=== PATIENT | female | born 1960 | race Caucasian/White ===

== ENCOUNTER → 2017-09-19 | Outpatient (CLI) | payer OTHER | LOC: M WHC 15:18 | DX: Z12.31 Encounter for screening mammogram for malignant neoplasm of breast (principal); Z78.0 Asymptomatic menopausal state; Z92.0 Personal history of contraception; Z92.89 Personal history of other medical treatment | CPT/HCPCS: 77067 ==

== ENCOUNTER 2018-04-09 10:53 | Day surgery (SDC) | payer OTHER ==
[2018-04-09] MEDS: NS 1,000 ML IV (11:00)
[2018-04-09] MEDS ORDERED: PROPOFOL 200 MG/20 ML VIAL As Ordered (11:52)
== END 2018-04-09 12:39 | disposition home or self-care (01) ==
LOC: M OPP 10:53
DX: Z12.11 Encounter for screening for malignant neoplasm of colon (principal); K64.0 First degree hemorrhoids; K57.30 Diverticulosis of large intestine without perforation or abscess without bleeding; Z80.0 Family history of malignant neoplasm of digestive organs; Z79.82 Long term (current) use of aspirin; Z79.899 Other long term (current) drug therapy; Z88.0 Allergy status to penicillin; K21.9 Gastro-esophageal reflux disease without esophagitis; F41.9 Anxiety disorder, unspecified; I10 Essential (primary) hypertension; Z91.89 Other specified personal risk factors, not elsewhere classified
CPT/HCPCS: 45378

== ENCOUNTER 2019-01-06 09:15 | Emergency (ER) | payer OTHER ==
[~2019-01-06] VITALS: Ht 157.5 cm; Wt 68.9 kg
[~2019-01-06 09:15] MED LIST: ASPI81TA85 PO; EFFE37.5 PO; METO25TA4 PO; MULT1TAB18 PO; VITA200016 PO
[2019-01-06] MEDS ORDERED: NS 1,000 ML IV ONE (09:45)
[2019-01-06 10:13] LABS: BASO % 0.6 % (0.0-1.0); EOS # 0.1 10^3/uL (0.0-0.50); HEMATOCRIT 45.6 % (36.0-47.0); HEMOGLOBIN 14.9 g/dl (12.0-15.5); LYMPH # 1.5 10^3/uL (1.5-4.5); LYMPH % 23.3 % (24.0-44.0); MEAN CORPUSCULAR HEMOGLOBIN 28.7 pg (27.0-33.0); MEAN CORPUSCULAR HGB CONC 32.7 g/dl (32.0-36.5); MEAN CORPUSCULAR VOLUME 87.7 fl (80.0-96.0); MONO # 0.8 10^3/uL (0.0-0.8); NEUTROPHILS % 61.6 % (36.0-66.0); PLATELET COUNT, AUTOMATED 236 10^3/uL (150-450); WHITE BLOOD COUNT 6.5 10^3/uL (4.0-10.0)
[2019-01-06 10:45] LABS: ALBUMIN 3.6 GM/DL (3.2-5.2); ALT/SGPT 25 U/L (12-78); AMYLASE 23 U/L (25-115); BILIRUBIN,DIRECT 0.2 MG/DL (0.0-0.2); BILIRUBIN,TOTAL 0.5 MG/DL (0.2-1.0); BLOOD UREA NITROGEN 20 MG/DL (7-18); CALCIUM LEVEL 8.7 MG/DL (8.5-10.1); CARBON DIOXIDE LEVEL 27 MEQ/L (21-32); CHLORIDE LEVEL 107 MEQ/L (98-107); CK-MB VALUE MASS < 1.0 NG/ML (<3.6); CPK CREATINE PHOSPHOKINASE 35 U/L (26-192); CREATININE FOR GFR 0.91 MG/DL (0.55-1.30); GLOMERULAR FILTRATION RATE > 60.0 (>51); GLUCOSE, FASTING 97 MG/DL (70-100); LIPASE 71 U/L (73-393); MB/CK RELATIVE INDEX 2.85 (< OR =4); POTASSIUM SERUM 4.1 MEQ/L (3.5-5.1); SODIUM LEVEL 141 MEQ/L (136-145); TOTAL PROTEIN 6.8 GM/DL (6.4-8.2); TROPONIN I < 0.02 NG/ML (< 0.10)
[2019-01-06 12:37] VITALS: BP 139/86
== END 2019-01-06 12:54 | disposition home or self-care (01) ==
LOC: M ED 09:15
DX: A08.4 Viral intestinal infection, unspecified (principal); I10 Essential (primary) hypertension; Z87.442 Personal history of urinary calculi; Z79.82 Long term (current) use of aspirin; Z79.899 Other long term (current) drug therapy; Z88.0 Allergy status to penicillin

== ENCOUNTER → 2019-09-30 | Outpatient (REF) | payer OTHER ==
[2019-09-30 18:39] LABS: APPEARANCE, URINE CLEAR (CLEAR); BACTERIA, URINE AUTO NEGATIVE (NEGATIVE); BILIRUBIN, URINE AUTO NEGATIVE (NEGATIVE); BLOOD, URINE BLOOD 2+ (NEGATIVE); COLOR, URINE YELLOW (YELLOW); GLUCOSE, URINE (UA) AUTO NEGATIVE (NEGATIVE); KETONE, URINE AUTO NEGATIVE (NEGATIVE); LEUKOCYTE ESTERASE, URINE AUTO NEGATIVE (NEGATIVE); MUCUS, URINE SMALL (NEGATIVE); NITRITE, URINE AUTO NEGATIVE (NEGATIVE); PROTEIN, URINE AUTO 1+ mg/dL (NEGATIVE); RBC, URINE AUTO 22 /HPF (0-3); SPECIFIC GRAVITY URINE AUTO 1.019 (1.002-1.035); SQUAMOUS EPITHELIAL CELL UR AU 0 /HPF (0-6); UROBILINOGEN, URINE AUTO 0.2 mg/dL (0.0-2.0); WBC, URINE AUTO 5 /HPF (0-3)
== END ==
LOC: M LAB REF 17:07
PROVIDERS: ATTEND Nurse Practitioner Women's Health
DX: N32.81 Overactive bladder (principal); N39.41 Urge incontinence

== ENCOUNTER → 2020-08-24 | Outpatient (CLI) | payer SELFPAY ==
[~2020-08-24] MED LIST changes: -ASPI81TA85 PO; +ASPI81TA86 PO
== END ==
LOC: M LABSMTC 14:37
PROVIDERS: ATTEND Pediatrics
DX: Z20.828 Contact with and (suspected) exposure to other viral communicable diseases (principal)

== ENCOUNTER → 2021-06-28 | Outpatient (CLI) | payer OTHER ==
--- NOTE | 2021-06-28 09:47 | REP ---
INDICATION: PAIN COMPARISON: None. TECHNIQUE: AP and frog-lateral views of the left hip FINDINGS: Two views of the left hip demonstrates essentially age-appropriate examination. No significant overt arthritic degenerative changes are appreciated. No evidence for acute or healed injury. Surrounding soft tissues are unremarkable. IMPRESSION: Essentially age-appropriate left hip radiographs. <Electronically signed by Lei Jama > 06/28/21 0943
== END ==
LOC: M WUC 08:44
PROVIDERS: ATTEND Family Medicine
DX: M25.552 Pain in left hip (principal)

== ENCOUNTER → 2021-07-28 | Outpatient (CLI) | payer OTHER | LOC: M LABSMTC 11:25 | PROVIDERS: ATTEND Family Medicine | DX: Z20.822 Contact with and (suspected) exposure to COVID-19 (principal) ==

== ENCOUNTER → 2021-09-24 | Outpatient (CLI) | payer SELFPAY | LOC: M LABSMTC 09:29 | PROVIDERS: ATTEND Pediatrics | DX: Z20.822 Contact with and (suspected) exposure to COVID-19 (principal) ==

== ENCOUNTER 2022-01-29 16:43 | Emergency (ER) | payer OTHER ==
[~2022-01-29] VITALS: Ht 157.5 cm; Wt 67.7 kg
[2022-01-29] MEDS ORDERED: ONDANSETRON 4MG/2ML VIAL IV ONE (16:50)
[2022-01-29] MEDS ORDERED: MORPHINE 4 MG/ML 1ML VIAL/SYRINGE IV PRN (16:50)
[2022-01-29] MEDS ORDERED: METO1TAB7 (17:33)
[2022-01-29] MEDS ORDERED: BUPIVACAINE HCL 0.25% 10ML VIAL SC ONE (22:00)
[2022-01-29] MEDS ORDERED: LIDOCAINE 1% MDV 20ML VIAL SC ONE (22:00)
[2022-01-29 23:15] VITALS: BP 190/84
[2022-01-29] MEDS ORDERED: traMADol 50 MG TAB (BULK 4 TAB ED) PO ONE (23:35)
== END 2022-01-29 23:45 | disposition home or self-care (01) ==
LOC: M ED 16:43 → EDBD 16:43 → M ED 23:45
DX: S52.502A Unspecified fracture of the lower end of left radius, initial encounter for closed fracture (principal); W10.9XXA Fall (on) (from) unspecified stairs and steps, initial encounter; Y92.099 Unspecified place in other non-institutional residence as the place of occurrence of the external cause; Y93.9 Activity, unspecified; Y99.9 Unspecified external cause status; I10 Essential (primary) hypertension; F41.9 Anxiety disorder, unspecified; Z79.82 Long term (current) use of aspirin; Z79.899 Other long term (current) drug therapy; Z88.0 Allergy status to penicillin
CPT/HCPCS: 25605; 73080; 73090; 73100; 73110; 96374; 96375; 99285; J2270; J2405

== ENCOUNTER → 2022-02-10 | Outpatient (CLI) | payer OTHER ==
[~2022-02-10] MED LIST changes: +METO1TAB7
== END ==
LOC: M SOG 09:29
PROVIDERS: ATTEND Student in an Organized Health Care Education/Training Program
DX: S52.502D Unspecified fracture of the lower end of left radius, subsequent encounter for closed fracture with routine healing (principal); X58.XXXD Exposure to other specified factors, subsequent encounter; Y92.9 Unspecified place or not applicable; Y93.9 Activity, unspecified; Y99.9 Unspecified external cause status

== ENCOUNTER → 2022-02-17 | Outpatient (CLI) | payer OTHER | LOC: M SOG 09:02 | PROVIDERS: ATTEND Orthopaedic Surgery | DX: S52.502D Unspecified fracture of the lower end of left radius, subsequent encounter for closed fracture with routine healing (principal) ==

== ENCOUNTER → 2022-03-24 | Outpatient (CLI) | payer OTHER | LOC: M SOG 09:04 | PROVIDERS: ATTEND Orthopaedic Surgery | DX: S52.502D Unspecified fracture of the lower end of left radius, subsequent encounter for closed fracture with routine healing (principal) ==

== ENCOUNTER 2022-04-13 09:13 | Outpatient (RCR) | payer OTHER | END 2022-04-17 | LOC: M OT 09:13 | PROVIDERS: ATTEND Orthopaedic Surgery | DX: S52.502D Unspecified fracture of the lower end of left radius, subsequent encounter for closed fracture with routine healing (principal) ==

== ENCOUNTER 2022-05-17 09:00 | Outpatient (RCR) | payer OTHER | END 2022-05-18 | LOC: M OT 09:00 | PROVIDERS: ATTEND Orthopaedic Surgery | DX: S52.502D Unspecified fracture of the lower end of left radius, subsequent encounter for closed fracture with routine healing (principal) ==

== ENCOUNTER 2022-05-26 09:41 | Outpatient (RCR) | payer OTHER | END 2022-06-17 | LOC: M OT 09:41 | PROVIDERS: ATTEND Orthopaedic Surgery | DX: S52.502D Unspecified fracture of the lower end of left radius, subsequent encounter for closed fracture with routine healing (principal) ==

== ENCOUNTER → 2022-12-16 | Outpatient (CLI) | payer OTHER ==
[2022-12-16 16:59] LABS: CALCIUM LEVEL 9.2 MG/DL (8.3-10.6); CREATININE FOR GFR 1.19 MG/DL (0.55-1.30); GLOMERULAR FILTRATION RATE 49.1 (>45)
== END ==
LOC: M LAB 15:54
PROVIDERS: ATTEND Family Medicine
DX: R51.9 Headache, unspecified (principal)

== ENCOUNTER → 2022-12-21 | Outpatient (CLI) | payer OTHER ==
[~2022-12-21] MED LIST changes: +PROHANCE 279.3MG/ML 5ML VIAL As Ordered ONE
== END ==
LOC: M RAD 08:54
PROVIDERS: ATTEND Family Medicine
DX: R51.9 Headache, unspecified (principal); R90.89 Other abnormal findings on diagnostic imaging of central nervous system
CPT/HCPCS: 70553; A9576

== ENCOUNTER 2023-01-23 10:19 | Observation (INO) | payer OTHER ==
[~2023-01-23] VITALS: Ht 157.5 cm; Wt 69.1 kg
[~2023-01-23 10:19] MED LIST changes: -METO1TAB7; +METO1TAB7 PO; -PROHANCE 279.3MG/ML 5ML VIAL As Ordered ONE
[2023-01-23 12:11] LABS: BASO # 0.1 10^3/uL (0.0-0.2); BASO % 0.8 % (0.0-1.0); EOS # 0.1 10^3/uL (0.0-0.5); EOS % 0.9 % (0.0-3.0); HEMATOCRIT 44.9 % (36.0-47.0); HEMOGLOBIN 14.4 g/dl (12.0-15.5); LYMPH # 1.3 10^3/uL (1.5-5.0); LYMPH % 17.4 % (24.0-44.0); MEAN CORPUSCULAR HEMOGLOBIN 28.5 pg (27.0-33.0); MEAN CORPUSCULAR HGB CONC 32.1 g/dl (32.0-36.5); MEAN CORPUSCULAR VOLUME 88.7 fl (80.0-96.0); MONO # 0.4 10^3/uL (0.0-0.8); MONO % 5.4 % (2.0-8.0); NEUTROPHILS # 5.7 10^3/uL (1.5-8.5); NEUTROPHILS % 75.1 % (36.0-66.0); PLATELET COUNT, AUTOMATED 272 10^3/uL (150-450); RED BLOOD COUNT 5.06 10^6/uL (4.00-5.40); WHITE BLOOD COUNT 7.6 10^3/uL (4.0-10.0)
[2023-01-23 12:33] LABS: CALCIUM LEVEL 9.6 MG/DL (8.3-10.6); CREATININE FOR GFR 1.04 MG/DL (0.55-1.30); GLOMERULAR FILTRATION RATE 57.4 (>45); POTASSIUM SERUM 4.6 MMOL/L (3.5-5.1)
[2023-01-23] MEDS ORDERED: LIDOCAINE 5% (LIDODERM) PATCH TD ONE (14:45)
[2023-01-23] MEDS ORDERED: KETOROLAC 30 MG/ML 1ML VIAL IV ONE (14:45)
[2023-01-23] MEDS ORDERED: NS 1,000 ML IV ONE (14:45)
[2023-01-23] MEDS ORDERED: MORPHINE 4 MG/ML 1ML VIAL IV ONE (16:25)
[2023-01-23] MEDS ORDERED: ONDANSETRON 4MG 2ML VIAL IV ONE (16:25)
[2023-01-23] MEDS ORDERED: NS 1,000 ML IV SCH (16:30)
[2023-01-23] MEDS ORDERED: ACETAMINOPHEN TAB 650MG DOSE (2X325MG) PO PRN (17:00)
[2023-01-23] MEDS ORDERED: MORPHINE 2 MG/ML 1ML VIAL IV PRN ×2 (17:00)
[2023-01-23] MEDS ORDERED: SALI0.6530 NARES (17:08)
[2023-01-23] MEDS ORDERED: D3 S1CAP3 PO (17:08)
[2023-01-23] MEDS ORDERED: B-12100010 PO (17:08)
[2023-01-23] MEDS ORDERED: VITMTA PO (17:08)
[2023-01-23] MEDS ORDERED: IBUP200C25 PO (17:08)
[2023-01-23] MEDS ORDERED: ECOT81TA5 PO (17:08)
[2023-01-23] MEDS ORDERED: HOME MED LIST COMPLETE! XX SCH (17:15)
[2023-01-23 17:26] LABS: RSV AMPLIFICATION NEGATIVE (NEGATIVE)
[2023-01-23] MEDS: NS 1,000 ML IV SCH ×2 (17:43→20:37)
[2023-01-23] MEDS: cefTRIAXone SOD 1 GM in D5W MINI-BAG PLUS 50 ML IV SCH (17:43)
[2023-01-23 20:02] VITALS: BP 142/84
[2023-01-23] MEDS: SODIUM CHLORIDE NASAL 0.65% SPRAY BTL (OCEAN) SCH (21:00)
[2023-01-24] VITALS (13 sets, daily range): BP systolic 124–160; BP diastolic 62–90
[2023-01-24 07:17] LABS: HEMATOCRIT 38.3 % (36.0-47.0); MEAN CORPUSCULAR HEMOGLOBIN 28.5 pg (27.0-33.0); MEAN CORPUSCULAR HGB CONC 31.6 g/dl (32.0-36.5); MEAN CORPUSCULAR VOLUME 90.1 fl (80.0-96.0); PLATELET COUNT, AUTOMATED 216 10^3/uL (150-450); RED BLOOD COUNT 4.25 10^6/uL (4.00-5.40); WHITE BLOOD COUNT 6.6 10^3/uL (4.0-10.0)
[2023-01-24 07:28] LABS: HEMOGLOBIN 12.1 g/dl (12.0-15.5)
[2023-01-24 07:40] LABS: ALBUMIN 3.2 G/DL (3.2-5.2); BILIRUBIN,TOTAL 0.5 MG/DL (0.3-1.2); CALCIUM LEVEL 8.2 MG/DL (8.3-10.6); POTASSIUM SERUM 4.5 MMOL/L (3.5-5.1); TOTAL PROTEIN 6.3 G/DL (5.7-8.2)
[2023-01-24] MEDS: METOPROLOL SUCC (TopROL XL) 50MG **XL** TAB PO SCH (08:29)
[2023-01-24] MEDS: SODIUM CHLORIDE NASAL 0.65% SPRAY BTL (OCEAN) SCH ×2 (08:30→20:24)
[2023-01-24] MEDS: VENLAFAXINE **XR** 37.5 MG CAPSULE PO SCH (08:31)
[2023-01-24] MEDS: NS 1,000 ML IV SCH (09:00)
[2023-01-24] MEDS ORDERED: propofoL 200 MG/20 ML VIAL As Ordered ONE (16:47)
[2023-01-24] MEDS ORDERED: fentaNYL 100 MCG/2 ML INJECTION As Ordered ONE (16:47)
[2023-01-24] MEDS ORDERED: MIDAZOLAM INJ 2MG/2ML VIAL As Ordered ONE (16:47)
[2023-01-24] MEDS ORDERED: LIDOCAINE 2% 100MG/5ML SDV (FOR ANES.) As Ordered ONE (16:47)
[2023-01-24] MEDS: cefTRIAXone SOD 1 GM in D5W MINI-BAG PLUS 50 ML IV SCH (18:47)
[2023-01-24] MEDS ORDERED: ONDANSETRON 4MG 2ML VIAL IV PRN (19:45)
[2023-01-24] MEDS ORDERED: oxyBUTYnin 5 MG TAB PO PRN (19:50)
[2023-01-24] MEDS: PHENAZOPYRIDINE 100 MG TAB PO PRN (20:24)
[2023-01-25 03:45] VITALS: BP 134/64
[2023-01-25] MEDS: NS 1,000 ML IV SCH (06:30)
[2023-01-25 07:45] LABS: MEAN CORPUSCULAR HEMOGLOBIN 27.8 pg (27.0-33.0); MEAN CORPUSCULAR HGB CONC 31.7 g/dl (32.0-36.5); MEAN CORPUSCULAR VOLUME 87.8 fl (80.0-96.0); PLATELET COUNT, AUTOMATED 236 10^3/uL (150-450); RED BLOOD COUNT 4.67 10^6/uL (4.00-5.40); WHITE BLOOD COUNT 7.4 10^3/uL (4.0-10.0)
[2023-01-25 08:00] VITALS: BP 124/68
[2023-01-25 08:39] LABS: BASO # 0.1 10^3/uL (0.0-0.2); BASO % 0.8 % (0.0-1.0); EOS # 0.2 10^3/uL (0.0-0.5); EOS % 3.3 % (0.0-3.0); LYMPH # 1.3 10^3/uL (1.5-5.0); LYMPH % 17.3 % (24.0-44.0); MONO # 0.6 10^3/uL (0.0-0.8); MONO % 8.7 % (2.0-8.0); NEUTROPHILS % 69.6 % (36.0-66.0)
[2023-01-25 08:55] LABS: ALBUMIN 3.7 G/DL (3.2-5.2); ALKALINE PHOSPHATASE 126 U/L (46-116); ALT/SGPT 15 U/L (7.0-40); AST/SGOT 16 U/L (<34); BILIRUBIN,TOTAL 0.6 MG/DL (0.3-1.2); BLOOD UREA NITROGEN 11 MG/DL (9-23); CALCIUM LEVEL 9.1 MG/DL (8.3-10.6); CARBON DIOXIDE LEVEL 28 MMOL/L (20-31); CHLORIDE LEVEL 105 MMOL/L (98-107); CREATININE FOR GFR 0.96 MG/DL (0.55-1.30); GLOMERULAR FILTRATION RATE > 60.0 (>45); GLUCOSE, FASTING 75 MG/DL (74-106); SODIUM LEVEL 139 MMOL/L (136-145)
[2023-01-25] MEDS: VENLAFAXINE **XR** 37.5 MG CAPSULE PO SCH (09:08)
[2023-01-25] MEDS: METOPROLOL SUCC (TopROL XL) 50MG **XL** TAB PO SCH (09:08)
[2023-01-25] MEDS: SODIUM CHLORIDE NASAL 0.65% SPRAY BTL (OCEAN) SCH (09:09)
[2023-01-25] MEDS: PHENAZOPYRIDINE 100 MG TAB PO PRN (09:12)
[2023-01-25] MEDS ORDERED: ACET1TAB55 PO (10:24)
[2023-01-25] MEDS ORDERED: ONDA-83 PO (10:24)
[2023-01-25 12:00] VITALS: BP 134/68
== END 2023-01-25 13:55 | disposition home or self-care (01) ==
LOC: M ED 10:19 → M ED INP 17:00 → M MS4PR 20:02
PROVIDERS: ADMIT Internal Medicine; ATTEND Family Medicine
DX: N13.2 Hydronephrosis with renal and ureteral calculous obstruction (principal); R51.9 Headache, unspecified; I10 Essential (primary) hypertension; E04.1 Nontoxic single thyroid nodule; N39.0 Urinary tract infection, site not specified; Z88.0 Allergy status to penicillin; Z79.82 Long term (current) use of aspirin; Z79.899 Other long term (current) drug therapy
CPT/HCPCS: 36415; 52332; 74176; 74420; 80048; 80053; 81001; 85025; 85027; 87086; 87631; 96361; 96365; 96366; 96375; 96376; 99284; C1769; C2617; J0696; J1885; J2250; J2405; J3010

== ENCOUNTER → 2023-02-03 | Outpatient (CLI) | payer OTHER ==
[~2023-02-03] MED LIST changes: +ACET1TAB55 PO; +B-12100010 PO; +D3 S1CAP3 PO; +ECOT81TA5 PO; +IBUP200C25 PO; +ONDA-83 PO; +SALI0.6530 NARES; +VITMTA PO
[2023-02-03 19:19] LABS: APPEARANCE, URINE CLOUDY (CLEAR); BACTERIA, URINE AUTO NEGATIVE (NEGATIVE); BILIRUBIN, URINE AUTO NEGATIVE (NEGATIVE); BLOOD, URINE BLOOD 3+ (NEGATIVE); CALCIUM OXALATE CRYSTALS SMALL; COLOR, URINE AMBER (YELLOW); GLUCOSE, URINE (UA) AUTO NEGATIVE (NEGATIVE); KETONE, URINE AUTO TRACE mg/dL (NEGATIVE); LEUKOCYTE ESTERASE, URINE AUTO 3+ (NEGATIVE); MUCUS, URINE SMALL (NEGATIVE); NITRITE, URINE AUTO NEGATIVE (NEGATIVE); PROTEIN, URINE AUTO 3+ mg/dL (NEGATIVE); RBC, URINE AUTO TNTC /HPF (0-3); SPECIFIC GRAVITY URINE AUTO 1.027 (1.002-1.035); SQUAMOUS EPITHELIAL CELL UR AU 1 /HPF (0-6); UROBILINOGEN, URINE AUTO 0.2 mg/dL (0.0-2.0); WBC, URINE AUTO 117 /HPF (0-3)
== END ==
LOC: M LAB 18:03
PROVIDERS: ATTEND Physician Assistant
DX: R30.0 Dysuria (principal)

== ENCOUNTER → 2023-02-21 | Outpatient (CLI) | payer OTHER ==
[2023-02-21 15:38] LABS: APPEARANCE, URINE HAZY (CLEAR); BACTERIA, URINE AUTO 1+ (NEGATIVE); BILIRUBIN, URINE AUTO NEGATIVE (NEGATIVE); BLOOD, URINE BLOOD 3+ (NEGATIVE); COLOR, URINE AMBER (YELLOW); GLUCOSE, URINE (UA) AUTO NEGATIVE (NEGATIVE); KETONE, URINE AUTO NEGATIVE (NEGATIVE); LEUKOCYTE ESTERASE, URINE AUTO 3+ (NEGATIVE); MUCUS, URINE SMALL (NEGATIVE); NITRITE, URINE AUTO NEGATIVE (NEGATIVE); PROTEIN, URINE AUTO 2+ mg/dL (NEGATIVE); RBC, URINE AUTO TNTC /HPF (0-3); SPECIFIC GRAVITY URINE AUTO 1.027 (1.002-1.035); SQUAMOUS EPITHELIAL CELL UR AU 1 /HPF (0-6); WBC, URINE AUTO 63 /HPF (0-3)
== END ==
LOC: M LAB 14:52
PROVIDERS: ATTEND Physician Assistant
DX: Z01.818 Encounter for other preprocedural examination (principal)

== ENCOUNTER 2023-03-02 09:45 | Day surgery (SDC) | payer OTHER ==
[~2023-03-02] VITALS: Ht 157.5 cm; Wt 67.0 kg
[~2023-03-02 09:45] MED LIST changes: +OXYB5TAB10 PO; +VENL37.598 PO; +[UNRECOGNIZED DRUG - OTHER] PO; +ceFAZolin SOD 2 GM in IV 1 EA IV ONE
[2023-03-02] MEDS ORDERED: LR 1,000 ML IV SCH (11:15)
[2023-03-02] MEDS ORDERED: ACETAMINOPHEN 1000MG 100ML IV BAG As Ordered ONE (12:53)
[2023-03-02] MEDS ORDERED: OXYB5TAB10 PO (13:04)
[2023-03-02] MEDS ORDERED: MACR100C43 PO (13:04)
[2023-03-02] MEDS ORDERED: PYRI1TAB5 PO (13:04)
[2023-03-02] MEDS ORDERED: LABETALOL 100MG/20ML VIAL As Ordered ONE (13:06)
[2023-03-02] MEDS ORDERED: propofoL 200 MG/20 ML VIAL As Ordered ONE (13:20)
[2023-03-02] MEDS ORDERED: LIDOCAINE 2% 100MG/5ML SDV (FOR ANES.) As Ordered ONE (13:20)
[2023-03-02] MEDS ORDERED: ONDANSETRON 4MG 2ML VIAL As Ordered ONE (13:20)
[2023-03-02] MEDS ORDERED: MIDAZOLAM INJ 2MG/2ML VIAL As Ordered ONE (13:20)
[2023-03-02] MEDS ORDERED: GLYCOPYRROLATE INJ 0.2 MG/ML 2 ML VIAL As Ordered ONE (13:20)
[2023-03-02] MEDS ORDERED: fentaNYL 100 MCG/2 ML INJECTION As Ordered ONE (13:20)
[2023-03-02 14:12] VITALS: BP 169/87; TEMP 97.7; O2SAT 99
== END 2023-03-02 14:18 | disposition home or self-care (01) ==
LOC: M SDC 09:45
PROVIDERS: ATTEND Urology
DX: N20.0 Calculus of kidney (principal); I10 Essential (primary) hypertension; F41.9 Anxiety disorder, unspecified; Z79.899 Other long term (current) drug therapy; Z88.0 Allergy status to penicillin; K21.9 Gastro-esophageal reflux disease without esophagitis; G43.909 Migraine, unspecified, not intractable, without status migrainosus
CPT/HCPCS: 50590; 74018; J0131; J0690; J2250; J2405; J3010

== ENCOUNTER → 2023-03-13 | Outpatient (CLI) | payer OTHER ==
[~2023-03-13] MED LIST changes: +MACR100C43 PO; +PYRI1TAB5 PO; -ceFAZolin SOD 2 GM in IV 1 EA IV ONE
== END ==
LOC: M RAD 13:30
PROVIDERS: ATTEND Urology
DX: N20.0 Calculus of kidney (principal); Z96.0 Presence of urogenital implants

== ENCOUNTER → 2023-03-17 | Outpatient (REF) | payer OTHER | LOC: M SMT 11:28 | PROVIDERS: ATTEND Urology | DX: Z96.0 Presence of urogenital implants (principal) ==

== ENCOUNTER → 2023-03-24 | Outpatient (CLI) | payer OTHER | LOC: M WHC 12:20 | PROVIDERS: ATTEND Nurse Practitioner Family | DX: E04.2 Nontoxic multinodular goiter (principal) ==

== ENCOUNTER → 2023-05-04 | Outpatient (REF) | payer OTHER | LOC: M LAB REF 17:28 | PROVIDERS: ATTEND Internal Medicine Endocrinology, Diabetes & Metabolism | DX: E04.2 Nontoxic multinodular goiter (principal) ==

== ENCOUNTER → 2023-08-18 | Outpatient (CLI) | payer OTHER ==
[~2023-08-18] MED LIST changes: -OXYB5TAB10 PO; +OXYB5TAB11 PO
== END ==
LOC: M RAD 16:21
PROVIDERS: ATTEND Urology
DX: Z96.0 Presence of urogenital implants (principal)

== ENCOUNTER → 2024-01-09 | Outpatient (CLI) | payer OTHER ==
[~2024-01-09] MED LIST changes: -EFFE37.5 PO; +EFFE37.52 PO; -OXYB5TAB11 PO; +OXYB5TAB14 PO; -SALI0.6530 NARES; +SODI88SP NARES; +THERTAB52 PO
== END ==
LOC: M RAD 08:07
PROVIDERS: ATTEND Physician Assistant Medical
DX: J32.9 Chronic sinusitis, unspecified (principal); J34.1 Cyst and mucocele of nose and nasal sinus

== ENCOUNTER → 2024-02-06 | Outpatient (CLI) | payer OTHER ==
[2024-02-06 11:15] LABS: BLOOD UREA NITROGEN 15 MG/DL (9-23); CREATININE FOR GFR 0.93 MG/DL (0.55-1.30); GLOMERULAR FILTRATION RATE > 60.0 (>45)
== END ==
LOC: M LAB 10:18
PROVIDERS: ATTEND Psychiatry & Neurology Neurology
DX: I10 Essential (primary) hypertension (principal)

== ENCOUNTER → 2024-03-13 | Outpatient (CLI) | payer OTHER ==
[~2024-03-13] MED LIST changes: +AZEL0.1S NARES
[2024-03-13 17:07] LABS: BASO # 0.1 10^3/uL (0.0-0.2); BASO % 0.9 % (0.0-1.0); EOS # 0.2 10^3/uL (0.0-0.5); EOS % 2.7 % (0.0-3.0); HEMATOCRIT 40.2 % (36.0-47.0); HEMOGLOBIN 12.7 g/dl (12.0-15.5); LYMPH # 1.9 10^3/uL (1.5-5.0); LYMPH % 24.8 % (24.0-44.0); MEAN CORPUSCULAR HEMOGLOBIN 28.2 pg (27.0-33.0); MEAN CORPUSCULAR HGB CONC 31.6 g/dl (32.0-36.5); MEAN CORPUSCULAR VOLUME 89.3 fl (80.0-96.0); MONO # 0.5 10^3/uL (0.0-0.8); MONO % 6.6 % (2.0-8.0); NEUTROPHILS % 64.5 % (36.0-66.0); PLATELET COUNT, AUTOMATED 336 10^3/uL (150-450); WHITE BLOOD COUNT 7.7 10^3/uL (4.0-10.0)
[2024-03-13 17:16] LABS: IMMUNOGLOBULIN A 354.9 MG/DL (40-350); IMMUNOGLOBULIN G 1185 MG/DL (650-1600)
[2024-03-13 19:53] LABS: IMMUNOGLOBULIN E 3.4 IU/ML (0-378)
[2024-03-17 16:02] LABS: ANTI TETANUS ANTIBODY 2.58 IU/mL (>=0.10)
== END ==
LOC: M LAB 14:59
PROVIDERS: ATTEND Allergy & Immunology Allergy
DX: D84.9 Immunodeficiency, unspecified (principal)

== ENCOUNTER → 2024-03-18 | Outpatient (CLI) | payer OTHER ==
[2024-03-18 09:29] LABS: BASO # 0.1 10^3/uL (0.0-0.2); BASO % 0.9 % (0.0-1.0); EOS # 0.3 10^3/uL (0.0-0.5); EOS % 4.7 % (0.0-3.0); HEMATOCRIT 43.9 % (36.0-47.0); HEMOGLOBIN 14.2 g/dl (12.0-15.5); LYMPH # 1.7 10^3/uL (1.5-5.0); LYMPH % 26.5 % (24.0-44.0); MEAN CORPUSCULAR HEMOGLOBIN 28.3 pg (27.0-33.0); MEAN CORPUSCULAR HGB CONC 32.3 g/dl (32.0-36.5); MEAN CORPUSCULAR VOLUME 87.6 fl (80.0-96.0); MONO # 0.5 10^3/uL (0.0-0.8); MONO % 8.4 % (2.0-8.0); NEUTROPHILS # 3.8 10^3/uL (1.5-8.5); NEUTROPHILS % 59.2 % (36.0-66.0); PLATELET COUNT, AUTOMATED 303 10^3/uL (150-450); RED BLOOD COUNT 5.01 10^6/uL (4.00-5.40); WHITE BLOOD COUNT 6.4 10^3/uL (4.0-10.0)
[2024-03-18 10:01] LABS: ALBUMIN 3.9 G/DL (3.2-5.2); ALKALINE PHOSPHATASE 162 U/L (46-116); ALT/SGPT 26 U/L (7.0-40); AST/SGOT 18 U/L (<34); BILIRUBIN,TOTAL 0.4 MG/DL (0.3-1.2); BLOOD UREA NITROGEN 21 MG/DL (9-23); CALCIUM LEVEL 9.5 MG/DL (8.3-10.6); CARBON DIOXIDE LEVEL 30 MMOL/L (20-31); CHLORIDE LEVEL 104 MMOL/L (98-107); CHOLESTEROL LEVEL 213 MG/DL (<200); CHOLESTEROL RISK RATIO 3.66 (<5); CREATININE FOR GFR 0.91 MG/DL (0.55-1.30); GLOMERULAR FILTRATION RATE > 60.0 (>45); GLUCOSE, FASTING 105 MG/DL (74-106); HDL CHOLESTEROL 58.1 MG/DL (>40); LDL CHOLESTEROL 140.1 MG/DL (<100); NON-HDL-C 154.9 MG/DL; POTASSIUM SERUM 4.5 MMOL/L (3.5-5.1); SODIUM LEVEL 138 MMOL/L (136-145); TOTAL PROTEIN 7.2 G/DL (5.7-8.2); TRIGLYCERIDES LEVEL 74 MG/DL (<150)
== END ==
LOC: M LAB 09:04
PROVIDERS: ATTEND Family Medicine
DX: I10 Essential (primary) hypertension (principal)

== ENCOUNTER 2024-04-08 09:24 | Day surgery (SDC) | payer OTHER ==
[~2024-04-08] VITALS: Ht 157.5 cm; Wt 69.4 kg
[~2024-04-08 09:24] MED LIST changes: +NS 1,000 ML IV ONE; +propofoL 200 MG/20 ML VIAL As Ordered ONE
[2024-04-08] MEDS ORDERED: LIDOCAINE 2% 100MG/5ML SDV (FOR ANES.) As Ordered ONE (10:44)
[2024-04-08] MEDS ORDERED: LABETALOL 100MG/20ML VIAL As Ordered ONE (10:44)
[2024-04-08 11:12] VITALS: TEMP 97.1
[2024-04-08 11:27] VITALS: BP 142/65; O2SAT 98
== END 2024-04-08 11:39 | disposition home or self-care (01) ==
LOC: M OPP 09:24
PROVIDERS: ATTEND Internal Medicine Gastroenterology
DX: Z12.11 Encounter for screening for malignant neoplasm of colon (principal); Z80.0 Family history of malignant neoplasm of digestive organs; K64.0 First degree hemorrhoids; K57.30 Diverticulosis of large intestine without perforation or abscess without bleeding; K22.89 Other specified disease of esophagus; K44.9 Diaphragmatic hernia without obstruction or gangrene; R12 Heartburn; R05.3 Chronic cough; Z79.1 Long term (current) use of non-steroidal anti-inflammatories (NSAID); Z79.52 Long term (current) use of systemic steroids; Z79.899 Other long term (current) drug therapy; G47.9 Sleep disorder, unspecified; Z88.0 Allergy status to penicillin
CPT/HCPCS: 43239; 45378; 88305; J1920

== ENCOUNTER → 2024-05-02 | Outpatient (CLI) | payer OTHER ==
[~2024-05-02] MED LIST changes: -NS 1,000 ML IV ONE; -propofoL 200 MG/20 ML VIAL As Ordered ONE
== END ==
LOC: M SOG 14:36
PROVIDERS: ATTEND Physician Assistant
DX: M25.531 Pain in right wrist (principal)

== ENCOUNTER → 2024-06-13 | Outpatient (CLI) | payer OTHER | LOC: M LAB 16:51 | PROVIDERS: ATTEND Allergy & Immunology Allergy | DX: D84.9 Immunodeficiency, unspecified (principal) ==

== ENCOUNTER 2024-06-24 06:59 | Day surgery (SDC) | payer OTHER ==
[~2024-06-24] VITALS: Ht 157.5 cm; Wt 70.3 kg
[~2024-06-24 06:59] MED LIST changes: +AZEL1SPR3; +BAYE81TA10 PO; +CALC600T60 PO; +[UNRECOGNIZED DRUG - OTHER] PO
[2024-06-24] MEDS: LIDOCAINE W/EPINEPHRINE 1% 20ML VIAL XX ONE (07:15)
[2024-06-24] MEDS: SODIUM BICARBONATE 8.4% INJ 50MEQ 50ML VIAL XX ONE (07:15)
[2024-06-24] MEDS ORDERED: BACITRACIN OINTMENT 30GM TUBE As Ordered ONE (08:41)
[2024-06-24 08:53] VITALS: BP 177/98; TEMP 98.1; O2SAT 98
== END 2024-06-24 09:22 | disposition home or self-care (01) ==
LOC: M SDC 06:59
PROVIDERS: ATTEND Orthopaedic Surgery Hand Surgery
DX: M65.4 Radial styloid tenosynovitis [de Quervain] (principal); I10 Essential (primary) hypertension; E04.1 Nontoxic single thyroid nodule; K21.9 Gastro-esophageal reflux disease without esophagitis; F41.9 Anxiety disorder, unspecified; Z88.0 Allergy status to penicillin; Z79.899 Other long term (current) drug therapy

== ENCOUNTER → 2024-07-13 | Outpatient (CLI) | payer OTHER ==
[~2024-07-13] MED LIST changes: -AZEL0.1S NARES; +AZEL137S8 NARES
== END ==
LOC: M SLEEP 20:00
PROVIDERS: ATTEND Nurse Practitioner Adult Health
DX: G47.33 Obstructive sleep apnea (adult) (pediatric) (principal)

== ENCOUNTER → 2024-08-19 | Outpatient (CLI) | payer OTHER | LOC: M SLEEP 20:00 | PROVIDERS: ATTEND Nurse Practitioner Adult Health | DX: G47.33 Obstructive sleep apnea (adult) (pediatric) (principal) ==

== ENCOUNTER → 2024-09-13 | Outpatient (CLI) | payer OTHER | LOC: M RAD 11:04 | PROVIDERS: ATTEND Urology | DX: N20.0 Calculus of kidney (principal) ==

== ENCOUNTER → 2025-01-03 | Outpatient (CLI) | payer OTHER ==
[2025-01-03 10:49] LABS: BASO % 0.8 % (0.0-1.0); EOS # 0.2 10^3/uL (0.0-0.5); EOS % 3.3 % (0.0-3.0); HEMATOCRIT 45.1 % (36.0-47.0); LYMPH # 1.4 10^3/uL (1.5-5.0); LYMPH % 27.8 % (24.0-44.0); MEAN CORPUSCULAR HEMOGLOBIN 28.3 pg (27.0-33.0); MEAN CORPUSCULAR VOLUME 91.1 fl (80.0-96.0); MONO # 0.4 10^3/uL (0.0-0.8); MONO % 8.2 % (2.0-8.0); NEUTROPHILS # 3.1 10^3/uL (1.5-8.5); NEUTROPHILS % 59.7 % (36.0-66.0); PLATELET COUNT, AUTOMATED 249 10^3/uL (150-450); RED BLOOD COUNT 4.95 10^6/uL (4.00-5.40); WHITE BLOOD COUNT 5.2 10^3/uL (4.0-10.0)
[2025-01-03 11:11] LABS: INR 0.94; PARTIAL THROMBOPLASTIN TIME 28.7 SECONDS (24.8-34.2); PROTHROMBIN TIME 12.9 SECONDS (12.5-14.5)
[2025-01-03 11:18] LABS: CALCIUM LEVEL 9.5 MG/DL (8.3-10.6); CREATININE FOR GFR 0.83 MG/DL (0.55-1.30); GLOMERULAR FILTRATION RATE 79.2 (>45); POTASSIUM SERUM 5.1 MMOL/L (3.5-5.1)
== END ==
LOC: M LAB 09:32
PROVIDERS: ATTEND Neurological Surgery
DX: I87.8 Other specified disorders of veins (principal)

== ENCOUNTER → 2025-09-04 | Outpatient (CLI) | payer OTHER ==
[~2025-09-04] MED LIST changes: -SODI88SP NARES; +SODI88SP7 NARES
== END ==
LOC: M RAD 14:18
PROVIDERS: ATTEND Urology
DX: N20.0 Calculus of kidney (principal)